=== PATIENT | male | born 1990 | race African-American/Black ===

== ENCOUNTER 2018-09-09 21:42 | Emergency (ER) | payer SELFPAY ==
[~2018-09-09] VITALS: Ht 177.8 cm; Wt 113.4 kg
[2018-09-09 22:03] VITALS: BP 173/98
--- NOTE | 2018-09-09 22:23 | PHYS DOC ---
Past Medical History Past Medical History: No Pertinent History Past Surgical History: No Surgical History Alcohol Use: None Drug Use: None Adult General Chief Complaint Chief Complaint: ANIMAL BITE HPI HPI Patient is a 28 year old AA male who presents to the ER with complaints of bilateral hand pain and dog bites. Pt states he was breaking up a fight between his dogs when he was bit. He has bites to his right thumb, left palm and left lateral hand. He states the areas are tingling. He denies any decreased mobility. He is unsure of when his last tetanus shot was. He states that both of his dogs are UTD on their vaccinations. Review of Systems Review of Systems Constitutional: Denies fever or chills [] Musculoskeletal: Denies back pain or joint pain [] Integument: Denies rash, See HPI Neurologic: Denies headache, focal weakness or sensory changes [] All other systems were reviewed and found to be within normal limits, except as documented in this note. Current Medications Current Medications Current Medications Medications (Trade) Dose Ordered Sig/Dominic Start Time Stop Time Status Last Admin Dose Admin Acetaminophen/ Hydrocodone Bitart (Lortab 5/325) 1 tab 1X ONCE 09/09/18 23:00 09/09/18 23:10 DC 09/09/18 23:00 1 TAB Diphtheria/ Tetanus/Acell Pertussis (Boostrix) 0.5 ml ONCE ONCE 09/09/18 22:30 09/09/18 22:31 DC 09/09/18 22:51 0.5 ML Lidocaine HCl (Xylocaine-Mpf 1% 2ml Vial) 6 ml 1X ONCE 09/09/18 22:30 09/09/18 22:31 DC 09/09/18 22:30 6 ML Allergies Allergies Allergies Coded Allergies Type Severity Reaction Last Updated Verified No Known Drug Allergies 09/09/18 No Physical Exam Physical Exam Constitutional: Well developed, well nourished, no acute distress, non-toxic appearance. [] HENT: Normocephalic, atraumatic, bilateral external ears normal, nose normal. [] Eyes: PERRLA, conjunctiva normal, no discharge. [] Skin: Warm, dry, no erythema, no rash; puncture wound to palmar aspect of right thumb 2 mm with adipose tissue exposed no active bleeding, 3 cm laceration to palmar aspect of left hand at base of thumb with adipose tissue exposed no active bleeding, 1.5 cm laceration to lateral left wrist no active bleeding Extremities: No cyanosis, no clubbing, full extension and flexion of right thumb, full extension and flexion of R wrist and digits of R hand, tenderness to palpation at wound sites [] Neurologic: Alert and oriented X 3, normal motor function, normal sensory function, no focal deficits noted. [] Psychologic: Affect normal, judgement normal, mood normal. [] Current Patient Data Vital Signs Vital Signs Date Time Temp Pulse Resp B/P (MAP) Pulse Ox O2 Delivery O2 Flow Rate FiO2 09/09/18 23:00 16 09/09/18 22:03 99.3 88 173/98 (123) 98 Room Air 99.3 EKG EKG [] Radiology/Procedures Radiology/Procedures Laceration Repair by me: Anesthesia: 1% lidocaine locally to left palm and left wrist, 6 ml total Location: palmar aspect of left hand; lateral left wrist Tendon/Joint/Nerves: No injury Foreign body: None detected after copious irrigation and exploration Technique: 4 Simple Interrupted Sutures to left palm, 1 simple interrupted suture to left wrist Complexity: No subcutaneous sutures/mucosal repair/edge excision Post Closure Length: 6 cm L palm, 1.5 cm L wrist Patient's bleeding was easily controlled in the department and there is no indication of anemia. No evidence of compartment syndrome, neurologic injury, vascular injury, open joint, tendon laceration, or foreign body. Patient is appropriate for outpatient follow up. 48 hour wound check. Scar minimization instructions given. Course & Med Decision Making Course & Med Decision Making Pertinent Labs and Imaging studies reviewed. (See chart for details) dx: puncture wounds bilateral hands, dog bites prescription for augmentin. Pt given Tdap in the ER and one Brooks 5/325. Wound repair as described above. Velcro wrist splint placed by nurse. Follow up with your doctor or return to ER in 48 hours for wound recheck. may take tylenol or ibuprofen as needed for pain. Keep the wound sites clean and dry. Apply antibiotic ointment and bandages twice daily and as needed. Have the sutures removed in 10 days, wear the splint until sutures are removed. Do not submerge hands in water until sutures are removed. Patient verbalized an understanding of home care, medications, follow-up, and return to ED instructions and was in agreement with the plan of care. [] Dragon Disclaimer Dragon Disclaimer This electronic medical record was generated, in whole or in part, using a voice recognition dictation system. Departure Departure Impression: Primary Impression: Dog bite of right hand without complication Additional Impressions: Dog bite of left hand without complication Laceration of left palm without complication Laceration of left wrist without complication Need for [id number] (Tdap) vaccine Disposition: 01 HOME, SELF-CARE Condition: STABLE Patient Instructions: Animal Bite, [id number] Additional Instructions: Fill prescription and take as directed. Follow up with your doctor or return to ER in 48 hours for wound recheck. You may take tylenol or ibuprofen as needed for pain. Keep the wound sites clean and dry. Apply antibiotic ointment and bandages twice daily and as needed. Have the sutures removed in 10 days, wear the splint until sutures are removed. Do not submerge hands in water until sutures are removed. Scripts Amoxicillin/Potassium Clav (AUGMENTIN 875-125 TABLET) 1 Each Tablet 1 TAB PO BID, #20 TAB 0 Refills Prov: [employer] 09/09/18 Splinting Splinting : Location: Left wrist Pre-Made Type: velcro Splint: wrist Pre-Proc Neuro Vasc Exam: normal Post-Proc Neuro Vasc Exam: normal, unchanged from pre-exam Problem Qualifiers Primary Impression: Dog bite of right hand without complication Encounter type: initial encounter Qualified Codes: S61.451A - Open bite of right hand, initial encounter; W54.0XXA - Bitten by dog, initial encounter Additional Impressions: Dog bite of left hand without complication Encounter type: initial encounter Qualified Codes: S61.452A - Open bite of left hand, initial encounter; W54.0XXA - Bitten by dog, initial encounter Laceration of left palm without complication Encounter type: initial encounter Qualified Codes: S61.412A - Laceration without foreign body of left hand, initial encounter Laceration of left wrist without complication Encounter type: initial encounter Qualified Codes: S61.512A - Laceration without foreign body of left wrist, initial encounter [employer] Sep 09, 2018 22:23
[2018-09-09] MEDS: LIDOCAINE 1% PF 2 ML VIAL. INJ ONE (22:30)
[2018-09-09] MEDS: DIPHTH,PERTUSS(ACELL),TET TOX 0.5 ML DISP.SYRIN. VAX IM ONE (22:51)
[2018-09-09] MEDS: HYDROcodone/APAP 5/325MG 1 TAB TABLET PO ONE (23:00)
[2018-09-09] MEDS ORDERED: AMOX1TAB61 PO (23:41)
[2018-09-10] MEDS: NEOMY/BACITR/POLYMYXIN OINT PACKET. TP ONE (00:01)
== END 2018-09-10 00:07 | disposition home or self-care (01) ==
LOC: ER 21:42
DX: S61.412A Laceration without foreign body of left hand, initial encounter (principal); S61.512A Laceration without foreign body of left wrist, initial encounter; S61.031A Puncture wound without foreign body of right thumb without damage to nail, initial encounter; S61.452A Open bite of left hand, initial encounter; S61.451A Open bite of right hand, initial encounter; W54.0XXA Bitten by dog, initial encounter; Y93.89 Activity, other specified; Y92.89 Other specified places as the place of occurrence of the external cause; Y99.8 Other external cause status
CPT/HCPCS: 12002; 90471; 90715; 99283

== ENCOUNTER 2018-09-18 13:03 | Emergency (ER) | payer SELFPAY ==
[~2018-09-18] VITALS: Ht 177.8 cm; Wt 111.1 kg
[~2018-09-18 13:03] MED LIST: AMOX1TAB61 PO
[2018-09-18 13:10] VITALS: BP 143/83
--- NOTE | 2018-09-18 13:35 | PHYS DOC ---
Past Medical History Past Medical History: No Pertinent History Past Surgical History: No Surgical History Alcohol Use: None Drug Use: None Adult General Chief Complaint Chief Complaint: SUTURE/STAPLE REMOVAL [facility] Patient is a 28 year old male who presents with a need for suture removal from well-healed lacerations to the palm of his hand and wrist. The patient states that he has [address] He states the injury occurred approximately 11 days ago when he tried to break up a fight with his dogs. Review of Systems Review of Systems Constitutional: Denies fever or chills [] Respiratory: Denies cough or shortness of breath [] Cardiovascular: No additional information not addressed in HPI [] GI: Denies abdominal pain, nausea, vomiting, bloody stools or diarrhea [] : Denies dysuria or hematuria [] Musculoskeletal: Denies back pain or joint pain [] Integument: See history of present illness Neurologic: Denies headache, focal weakness or sensory changes [] Endocrine: Denies polyuria or polydipsia [] All other systems were reviewed and found to be within normal limits, except as documented in this note. Allergies Allergies Allergies Coded Allergies Type Severity Reaction Last Updated Verified No Known Drug Allergies 09/09/18 No Physical Exam Physical Exam Constitutional: Well developed, well nourished, no acute distress, non-toxic appearance. [] Cardiovascular:Heart rate regular rhythm, no murmur [] Lungs & Thorax: Bilateral breath sounds clear to auscultation [] Abdomen: Bowel sounds normal, soft, no tenderness, no masses, no pulsatile masses. [] Skin: two lacerations that well healed noted, 5 sutures removed with no complications Back: No tenderness, no CVA tenderness. [] Extremities: No tenderness, no cyanosis, no clubbing, ROM intact, no edema. [] Neurologic: Alert and oriented X 3, normal motor function, normal sensory function, no focal deficits noted. [] Psychologic: Affect normal, judgement normal, mood normal. [] Current Patient Data Vital Signs Vital Signs Date Time Temp Pulse Resp B/P (MAP) Pulse Ox O2 Delivery O2 Flow Rate FiO2 09/18/18 13:10 98.5 73 18 143/83 (103) 98 Room Air 98.5 EKG EKG [] Radiology/Procedures Radiology/Procedures [] Course & Med Decision Making Course & Med Decision Making Pertinent Labs and Imaging studies reviewed. (See chart for details) [] Dragon Disclaimer Dragon Disclaimer This electronic medical record was generated, in whole or in part, using a voice recognition dictation system. Departure Departure Impression: Primary Impression: Visit for suture removal Disposition: HOME, SELF-CARE Condition: STABLE Referrals: NO PCP (PCP) Patient Instructions: Suture Removal Additional Instructions: Continue to keep the wounds clean and dry as they continue to heal. Follow-up with your primary care for any future healthcare needs. CATHLEEN HALL PNP Sep 18, 2018 13:35
== END 2018-09-18 13:40 | disposition home or self-care (01) ==
LOC: ER 13:03
DX: S61.512D Laceration without foreign body of left wrist, subsequent encounter (principal); X58.XXXD Exposure to other specified factors, subsequent encounter
CPT/HCPCS: 99281